=== PATIENT | female | born 1980 | race Caucasian/White ===

== ENCOUNTER 2018-02-09 15:44 | Emergency (ER) | payer BC ==
[~2018-02-09] VITALS: Ht 170.2 cm; Wt 81.6 kg
[2018-02-09 15:44] VITALS: BP_SYST 130
[2018-02-09 16:55] VITALS: BP_SYST 126
== END 2018-02-09 16:55 | disposition home or self-care (01) ==
LOC: SED 15:44
DX: T63.441A Toxic effect of venom of bees, accidental (unintentional), initial encounter (principal); Y92.89 Other specified places as the place of occurrence of the external cause
CPT/HCPCS: 99283